=== PATIENT | male | born 1985 | race Caucasian/White ===

== ENCOUNTER 2018-10-29 11:32 | Emergency (ER) | payer OTHER ==
[~2018-10-29] VITALS: Ht 188 cm; Wt 98.0 kg
[2018-10-29 11:36] VITALS: BP 134/92
[2018-10-29] MEDS ORDERED: acetaminophen 325mg tablet PO ONE (12:45)
[2018-10-29] MEDS ORDERED: HYDROcodone/acetaminophen 5mg/325mg tablet PO ONE (12:45)
[2018-10-29] MEDS ORDERED: ondansetron 4mg rapidly disintigrating tab PO ONE (12:45)
[2018-10-29] MEDS ORDERED: HYDR-3965 PO (12:56)
[2018-10-29] MEDS ORDERED: IBUP-1984 PO (12:58)
== END 2018-10-29 13:06 | disposition home or self-care (01) ==
LOC: ER 11:33
DX: S92.002A Unspecified fracture of left calcaneus, initial encounter for closed fracture (principal); Z88.0 Allergy status to penicillin; Z79.899 Other long term (current) drug therapy; W13.2XXA Fall from, out of or through roof, initial encounter; Y93.89 Activity, other specified; Y92.59 Other trade areas as the place of occurrence of the external cause; Y99.8 Other external cause status
CPT/HCPCS: 73650; 99284